=== PATIENT | male | born 1985 | race Hispanic/Latino ===

== ENCOUNTER 2021-01-08 16:18 | Emergency (ER) | payer BC ==
[~2021-01-08] VITALS: Ht 180.3 cm; Wt 76.0 kg
[2021-01-08] MEDS ORDERED: FAMOTIDINE 20 MG/2 ML VIAL IV STA (16:30)
[2021-01-08] MEDS ORDERED: FAMOTIDINE 20 MG/2 ML VIAL IV ONE (16:50)
[2021-01-08] MEDS ORDERED: PREDNISONE20 MG PO (17:03)
[2021-01-08] MEDS ORDERED: ZYRTEC10 M3 PO (17:03)
== END 2021-01-08 17:18 | disposition home or self-care (01) ==
LOC: FSED 16:27
DX: R07.89 Other chest pain (principal); R06.02 Shortness of breath
CPT/HCPCS: 71046; 80053; 82553; 83880; 84484; 85025; 85379; 93005; 99284